=== PATIENT | female | born 1995 ===

== ENCOUNTER → 2021-11-21 | Outpatient (CLI) | payer OTHER ==
[~2021-11-21] MED LIST: ACET325UDC; AMOCLA400 PO; AMOX50SU; AZIT200SU PO; CEPH500 PO; CETI10 PO; CODACEE120 PO; DIPH12.5EL; IBUP200; Kristalose20 GM PO; LORA2 PO; MECL25 PO; NAPR500 PO; Pyridium200 MG PO; Zofran Odt8 MG SL
== END | disposition home or self-care (01) ==
LOC: LAB 18:45 → LAB SHORT 18:45
DX: E03.9 Hypothyroidism, unspecified (principal)
CPT/HCPCS: 84443

== ENCOUNTER → 2022-07-31 | Outpatient (CLI) | payer OTHER | END | disposition home or self-care (01) | LOC: LAB SHORT 15:06 → LAB 15:06 | DX: L02.91 Cutaneous abscess, unspecified (principal) | CPT/HCPCS: 87070; 87075; 87205 ==

== ENCOUNTER 2022-11-10 00:35 | Observation (INO) | payer OTHER ==
[~2022-11-10] VITALS: Ht 167.6 cm; Wt 87.5 kg
[2022-11-10] VITALS (18 sets, daily range): BP systolic 121–160; BP diastolic 91–115
[2022-11-10 01:01] LABS: BASOPHILS ABSOLUTE AUTO 0.04 K/mm3 (0.00-0.23); BASOPHILS PERCENT AUTO 1 % (0-2); EOSINOPHILS ABSOLUTE AUTO 0.04 K/mm3 (0.00-0.68); EOSINOPHILS PERCENT AUTO 1 % (0-6); Hematocrit 40.8 % (33.0-51.0); Hemoglobin 13.6 g/dL (11.5-16.0); IMMATURE GRAN ABSOLUTE AUTO 0.03 K/mm3 (0.00-0.10); IMMATURE GRAN PERCENT AUTO 0 % (0-1); LYMPHOCYTES ABSOLUTE AUTO 2.78 K/mm3 (0.84-5.20); LYMPHOCYTES PERCENT AUTO 37 % (21-46); MONOCYTES ABSOLUTE AUTO 0.58 K/mm3 (0.16-1.47); MONOCYTES PERCENT AUTO 8 % (4-13); Mean Corpuscular HGB Conc 33.3 g/dL (31.5-36.5); Mean Corpuscular Volume 90 fL (80-100); Mean Platelet Volume 9.1 fL (9.1-12.4); NEUTROPHILS ABSOLUTE AUTO 4.06 K/mm3 (1.96-9.15); NEUTROPHILS PERCENT AUTO 54 % (41-73); Platelet Count 283 K/mm3 (150-400); RDW Coefficient Variation 12.8 % (11.7-14.2); RDW Standard Deviation 42.1 fL (35.1-46.3); Red Blood Cell Count 4.54 M/mm3 (3.80-5.20); White Blood Cell Count 7.53 K/mm3 (4.00-11.30)
[2022-11-10] MEDS ORDERED: EFFEXOR XR150 MG PO (01:16)
[2022-11-10] MEDS ORDERED: SYNTHROID25 M12 PO (01:16)
[2022-11-10] MEDS ORDERED: TRAZ50 PO (01:17)
[2022-11-10 01:23] LABS: Ethanol (Alcohol), Blood, Med 136 mg/dL; Free Thyroxine 0.89 ng/dL (0.70-1.60); Salicylate <1.7 mg/dL (2.8-20.0)
[2022-11-10 01:26] LABS: Alanine Aminotransfer (ALT/SGP 35 U/L (12-78); Albumin/Globulin Ratio 0.9 (0.8-1.8); Alk Phos 55 U/L (50-136); Anion Gap 10 mmol/L (6-16); Aspartate Aminotrans (AST/SGOT 28 U/L (12-37); Bilirubin, Total 0.2 mg/dL (0.1-1.0); Blood Urea Nitrogen 8 mg/dL (8-24); Bun/Creatinine Ratio 10.2 (12.0-20.0); CO2, Blood 25 mmol/L (21-32); Calcium, Blood 9.7 mg/dL (8.5-10.1); Chloride, Blood 106 mmol/L (98-108); Creatinine, Blood 0.79 mg/dL (0.40-1.00); Globulin, Blood 4.3 g/dL (2.2-4.0); Glomerular Filtration Rate 104 (60-); Glucose, Blood 79 mg/dL (70-99); Potassium, Blood 3.3 mmol/L (3.5-5.5); Sodium, Blood 141 mmol/L (136-145); Total Protein, Blood 8.3 g/dL (6.4-8.2)
[2022-11-10 01:40] LABS: Acetaminophen, Random <2.0 ug/mL (10.0-30.0)
[2022-11-10 02:54] LABS: U Amphetamine Screen Not Detected; U Barbituate Screen Not Detected; U Benzodiazapine Screen Not Detected; U Buprenorphine Screen Not Detected; U Cannabinoids Screen Not Detected; U Cocaine Screen Not Detected; U Methadone Screen Not Detected; U Methamphetamine Screen Not Detected; U Opiates Screen DETECTED; U Oxycodone Screen Not Detected; U Phencyclidine Screen Not Detected; U Propoxyphene Screen Not Detected
[2022-11-10 08:21] LABS: BASOPHILS ABSOLUTE AUTO 0.03 K/mm3 (0.00-0.23); BASOPHILS PERCENT AUTO 0 % (0-2); EOSINOPHILS ABSOLUTE AUTO 0.02 K/mm3 (0.00-0.68); EOSINOPHILS PERCENT AUTO 0 % (0-6); Hematocrit 38.7 % (33.0-51.0); Hemoglobin 12.9 g/dL (11.5-16.0); IMMATURE GRAN ABSOLUTE AUTO 0.02 K/mm3 (0.00-0.10); IMMATURE GRAN PERCENT AUTO 0 % (0-1); LYMPHOCYTES ABSOLUTE AUTO 1.43 K/mm3 (0.84-5.20); LYMPHOCYTES PERCENT AUTO 20 % (21-46); MONOCYTES ABSOLUTE AUTO 0.49 K/mm3 (0.16-1.47); MONOCYTES PERCENT AUTO 7 % (4-13); Mean Corpuscular HGB 30.2 pg (26.0-34.0); Mean Corpuscular HGB Conc 33.3 g/dL (31.5-36.5); Mean Corpuscular Volume 91 fL (80-100); Mean Platelet Volume 9.4 fL (9.1-12.4); NEUTROPHILS ABSOLUTE AUTO 5.15 K/mm3 (1.96-9.15); NEUTROPHILS PERCENT AUTO 72 % (41-73); Platelet Count 272 K/mm3 (150-400); RDW Coefficient Variation 13.1 % (11.7-14.2); Red Blood Cell Count 4.27 M/mm3 (3.80-5.20); White Blood Cell Count 7.14 K/mm3 (4.00-11.30)
[2022-11-10 08:36] LABS: Albumin, Blood 3.9 g/dL (3.4-5.0); Bilirubin, Total 0.3 mg/dL (0.1-1.0); Bun/Creatinine Ratio 7.9 (12.0-20.0); Calcium, Blood 9.2 mg/dL (8.5-10.1); Creatinine, Blood 0.89 mg/dL (0.40-1.00); Globulin, Blood 3.8 g/dL (2.2-4.0); Potassium, Blood 3.7 mmol/L (3.5-5.5); Total Protein, Blood 7.7 g/dL (6.4-8.2)
--- NOTE | 2022-11-10 11:52 | NUR ---
PT ARRIVAL.... PT ARRIVED TO THE UNIT AT 0720. SHE IS A&Ox4 SHE LOOKS ANXIOUS AND HAS SOME SCATTERED THOUGHTS BUT IS COOPERATIVE WITH CARE, TEARFUL AT TIMES . SHE IS IN SINUS TACH 110'S-120'S BP IS HYPERTENSIVE WITH SBPs IN THE 150'S. SHE IS ON RA WITH O2 SATS>95% L/S CLEAR T/O. PT CURRENTLY DENIES ANY THOUGHTS OF SUICIDE AT THIS TIME. WILL CONTINUE TO MONITOR
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
--- NOTE | 2022-11-10 20:00 | NUR ---
ASSUMED CARE OF PT AT 1900. REPORT RECEIVED PARTIALLY AT BEDSIDE. PT PRESENTS IN BED. ALERT AND SOMEWHAT WITHDRAWN. MILD DEFENSIVE POSTURE. DOES SOME CURSING. DID ALLOW PT TO EXPRESS FEELINGS AND FRUSTRATIONS. VALIDATED THOSE WHERE APPROPRIATE. PT AGREES TO NOT HARM HERSELF WHILE IN THE HOSPITAL AND VERBALLY AGREES AND VOICES UNDERSTANDING THAT HER SAFETY IS A PRIORITY. WILL REVIEW CHART AND PLAN OF CARE FOR THIS PT.
--- NOTE | 2022-11-10 22:39 | NUR ---
PT TRANSFERS OUT TO ROOM 351 MEDICAL TELE STATUS. PT ACCEPTING OF TRANSFER. SITTER ACCOMPANIES PT. PT ABLE TO TRANSFER TO WHEELCHAIR, AND THEN TO BED IN ROOM 351.
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
--- NOTE | 2022-11-11 00:51 | NUR ---
PT EDUCATED ON [facility] FIRE SAFETY IGNITION/EXPLOSIVE SOURCES NON SMOKING POLICY AND VERBALIZED UNDERSTANDING.
--- NOTE | 2022-11-11 03:03 | NUR ---
SHIFT SUMMARY NOC TRANSFER FROM ICU FOR MD HOLD FOR SI ATTTEMPT. PT ATTEMPTED DRUG OVERDOSE BY INGESTING 50-60 PILLS OF BENADRYL. PT HAS HX OF SI ATTEMPTS. PT HAS 1:1 SITTER FOR DIRECT OBSERVATION AND ROOM HAS BEEN CLEARED PER SI PROTOCOL. PT ON Q4H SI RISK/MITIGATOIN ASSESSMENTS. SO FAR PT HAS DENIED SI AND HAS BEEN SLEEPING SINCE TRANSFER TO MED FLOOR. PT HAS HAD ELEVATED BP SINCE ADMIT TO HOSPITAL, BUT BP/HR ARE STARTING TO STABALIZE. ON TELE RUNNING SINUS RHTYHM @ 78 BPM. PT HAS PG IN N[place] THAT DRAWS. PT DENIES ANY CP/DISCOMFORT OR LIGHTHEADEDNESS/DIZZYNESS AT THIS TIME WHEN STANDING. PT IS CURRENTLY RESTING WITH BED IN LOWEST POSITION, AND SITTER IN ROOM FOR DIRECT OBSERVATION.
[2022-11-11 04:30] VITALS: BP 141/74
[2022-11-11 05:50] LABS: Bun/Creatinine Ratio 9.6 (12.0-20.0); Calcium, Blood 9.1 mg/dL (8.5-10.1); Creatinine, Blood 0.83 mg/dL (0.40-1.00); Potassium, Blood 4.1 mmol/L (3.5-5.5)
[2022-11-11 07:31] VITALS: BP 133/94
--- NOTE | 2022-11-11 12:10 | NUR ---
PATIENT STATES THIS IS THE FIRST TIME IN 6 YEARS SHE HAS NOT HAD A DRINK IN A DAY. SHE NORMALLY DRINKS SEVERAL CANS OF BEER EACH DAY WITH HER STEPDAD WHO SHE CALLS DAD. PATIENT WITH SLIGHT TREMOR THIS MORNING, C/O CHILLS AND INCREASING ANXIETY, STATES NORMALLY ANXIETY IS AT LEAST [address]ELINE. PHONE CALL TO DR ORNELAS REGARDING POSSIBLE NEED FOR CIWAA PROTOCOL. PER DR ORNELAS SHE WILL PUT IN ORDERS FOR CIWAA
[2022-11-11 15:54] VITALS: BP 141/105
[2022-11-11 18:53] LABS: SARS-Cov-2 (COVID-19) PCR, MMC NEGATIVE (NEGATIVE)
[2022-11-11 19:37] VITALS: BP 138/106
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
[2022-11-12 05:25] VITALS: BP 123/80
--- NOTE | 2022-11-12 05:52 | NUR ---
PATIENT REMAINS ALERT AND ORIENTED X4, COOPERATIVE WITH CARE, DOES NOT ENDORSE SI/HI. CIWA SCORES FROM 0-10, TREATED PER MAR WITH GOOD RESULTS. SITTER AT BEDSIDE. PG SL AND VSS. NO OTHER ISSUES TO REPORT.
[2022-11-12 07:39] VITALS: BP 171/78
[2022-11-12 08:11] VITALS: BP 122/89
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
--- NOTE | 2022-11-12 14:40 | NUR ---
REPORT CALLED TO LV AT [facility]. LV STATED PT ROOM NUMBER IS [id number] AND WILL BE AVAILABLE AT 2100. NOTIFIED RAIN MOUNTER SAXOPHONES.
[2022-11-12 14:53] VITALS: BP 122/89
[2022-11-12 16:00] VITALS: BP 141/119
--- NOTE | 2022-11-12 18:27 | NUR ---
SHIFT SUMMARY: PT A/O X 4, IND IN ROOM. HIGH SI RISK. PT ON 2 MD HOLD WITH 1:1 SITTER IN ROOM. PT HAS BEEN PLEASANT AND COOPERATIVE WITH CARE. PT HAS EXHIBITED AND REPORTED ANXIETY TODAY AND TREMORS WITH MILD DIAPHORESIS. LIBRIUM 25 MG GIVEN TWICE THIS SHIFT AND EFFECTIVE IN TREATING FOR SYMPTOMS/CIWA SCORE OF 6. PT TO TRANSFER TO [facility]. SOONEST RIDE AVAILABLE WAS 2100. PT IS AGREEABLE TO TRANSFER. PT HAS SHOWN GOOD BOUNDARIES. PT VERBALLY TOLD HER FATHER SHE WAS GOING TO QUIT DRINKING ALCOHOL THEREFORE SHE COULD NOT RETURN HOME WHERE PEOPLE DRINK. FATHER STATED IN RESPONSE "I WILL QUIT DRINKING FOR HER SO YOU CAN COME HOME." PT ALSO DID NOT WANT ACCESS TO HER CELL PHONE STATING "I CAN'T EMOTIONALLY DEAL WITH THE TEXT MESSAGES ON MY PHONE RIGHT NOW." CELL PHONE WAS CHARGED AND TURNED OFF PER HER REQUEST. PT BELONGINGS WERE BROUGHT IN BY HER FATHER AND WERE LOCKED IN THE CLOSER. HER PURSE WAS REPORTED TO HAVE 2 VAPE PENS. PURSE WAS LOCKED OUT OF ROOM IN NURSE CLINICAL DATA COORDINATOR.
[2022-11-12 19:31] VITALS: BP 150/108
--- NOTE | 2022-11-13 00:54 | NUR ---
DISCHARGE SUMMARY NOTE PATIENT ALERT, BRIGHT AFFECT. DENIES PAIN NOR DISCOMFORT. POWER GLIDE IV REMOVED, TIP INTACT, TOLERATED WELL. REPORT GIVEN TO SECURE TRANSPORT STAFF. ALL PATIENT PERSONAL BELONGINGS GIVEN TO SECURE TRANSPORT STAFF. REPORT WAS CALLED IN TO RECEIVING FACILITY BY PRIOR SHIFT NURSE.
== END 2022-11-12 22:00 ==
LOC: ER 00:35 → MEDS 00:36 → ER 00:36 → ICUE 00:36 → ERHOLD 00:36 → ICUE 07:01 → MEDS 22:38
PROVIDERS: Emergency Medicine; Internal Medicine; Student in an Organized Health Care Education/Training Program; ADMIT Internal Medicine
DX: T45.0X2A Poisoning by antiallergic and antiemetic drugs, intentional self-harm, initial encounter (principal); R00.0 Tachycardia, unspecified; F10.129 Alcohol abuse with intoxication, unspecified; F11.90 Opioid use, unspecified, uncomplicated; F41.9 Anxiety disorder, unspecified; F32.A Depression, unspecified; E03.9 Hypothyroidism, unspecified; I10 Essential (primary) hypertension; Z20.822 Contact with and (suspected) exposure to COVID-19; Y90.6 Blood alcohol level of 120-199 mg/100 ml
CPT/HCPCS: 36415; 51701; 80048; 80053; 81025; 84439; 84443; 85025; 93005; 93010; 96361; 96372; 96374; 96376; 99285-25; A9270; C1751; G0378; G0480; J1650; J2060; J7030; U0002

== ENCOUNTER 2024-04-03 05:32 | Emergency (ER) | payer OTHER ==
[~2024-04-03] VITALS: Ht 165.1 cm; Wt 92.5 kg
[~2024-04-03 05:32] MED LIST changes: +EFFEXOR XR150 MG PO; +SYNTHROID25 M12 PO; +TRAZ50 PO
[2024-04-03] MEDS ORDERED: Ondansetron HCl 2 MG / ML 2ML Vial IV ONE ×2 (07:20→12:40)
[2024-04-03] MEDS ORDERED: NS 1,000 ML IV SCH (07:20)
[2024-04-03] MEDS ORDERED: Morphine Sulfate 4 MG/1 ML Injection IV ONE ×2 (07:20→12:40)
[2024-04-03 07:24] LABS: BASOPHILS ABSOLUTE AUTO 0.08 K/mm3 (0.00-0.23); BASOPHILS PERCENT AUTO 1 % (0-2); EOSINOPHILS ABSOLUTE AUTO 0.09 K/mm3 (0.00-0.68); EOSINOPHILS PERCENT AUTO 1 % (0-6); Hemoglobin 13.3 g/dL (11.5-16.0); IMMATURE GRAN ABSOLUTE AUTO 0.03 K/mm3 (0.00-0.10); IMMATURE GRAN PERCENT AUTO 0 % (0-1); LYMPHOCYTES ABSOLUTE AUTO 1.72 K/mm3 (0.84-5.20); LYMPHOCYTES PERCENT AUTO 20 % (21-46); MONOCYTES ABSOLUTE AUTO 0.69 K/mm3 (0.16-1.47); MONOCYTES PERCENT AUTO 8 % (4-13); Mean Corpuscular HGB Conc 33.3 g/dL (31.5-36.5); Mean Corpuscular Volume 93 fL (80-100); Mean Platelet Volume 9.2 fL (9.1-12.4); NEUTROPHILS PERCENT AUTO 70 % (41-73); Platelet Count 372 K/mm3 (150-400); RDW Coefficient Variation 13.1 % (11.7-14.2); RDW Standard Deviation 44.7 fL (35.1-46.3); Red Blood Cell Count 4.29 M/mm3 (3.80-5.20); White Blood Cell Count 8.71 K/mm3 (4.00-11.30)
[2024-04-03 07:47] LABS: Albumin, Blood 3.8 g/dL (3.4-5.0); Albumin/Globulin Ratio 0.9 (0.8-1.8); Bilirubin, Total 1.7 mg/dL (0.1-1.0); Bun/Creatinine Ratio 6.5 (12.0-20.0); Calcium, Blood 9.4 mg/dL (8.5-10.1); Creatinine, Blood 0.77 mg/dL (0.40-1.00); Globulin, Blood 4.3 g/dL (2.2-4.0); Potassium, Blood 3.4 mmol/L (3.5-5.5); Total Protein, Blood 8.1 g/dL (6.4-8.2)
[2024-04-03 09:04] LABS: Source, Urine Clean Catch
[2024-04-03 09:13] LABS: Appearance, Urine Clear (Clear); Bilirubin, Urine Neg (Neg); Blood, Urine Neg (Neg); Color, Urine Yellow (P-Yellow); Glucose Qualitative, Urine Neg (Neg); Ketones, Urine 2+ (Neg); Leukocyte Esterase, Urine Neg (Neg); Nitrite, Urine Neg (Neg); Protein, Urine Neg (Neg); Urobilinogen, Urine NORM (Normal)
[2024-04-03 10:30] VITALS: BP 143/82
[2024-04-03] MEDS ORDERED: NS KCl 20mEq 1,000 ML IV SCH (12:40)
== END 2024-04-03 18:01 ==
LOC: ER 05:32
PROVIDERS: Emergency Medicine
DX: K80.20 Calculus of gallbladder without cholecystitis without obstruction (principal); R79.89 Other specified abnormal findings of blood chemistry; E03.9 Hypothyroidism, unspecified; F17.210 Nicotine dependence, cigarettes, uncomplicated; Z79.890 Hormone replacement therapy; Z79.899 Other long term (current) drug therapy; Z53.21 Procedure and treatment not carried out due to patient leaving prior to being seen by health care provider
CPT/HCPCS: 74181; 76705; 80053; 81003; 81025; 83690; 85025; 96361; 96374; 96375; 96376; 99283-25; J2270; J2405; J3480; J7030

== ENCOUNTER → 2024-04-27 | Outpatient (CLI) | payer OTHER ==
[2024-05-04 07:05] LABS: HPV HIGH RISK BY TMA Not Detected; HPV SOURCE Cervical
== END | disposition home or self-care (01) ==
LOC: LAB 15:17 → LAB SHORT 15:17
PROVIDERS: Family Medicine
DX: Z01.419 Encounter for gynecological examination (general) (routine) without abnormal findings (principal)
CPT/HCPCS: 87624; G0123